=== PATIENT | female | born 1960 | race Caucasian/White ===

== ENCOUNTER 2016-10-24 13:06 | Observation (INO) | payer SELFPAY ==
--- NOTE | ~2016-10-24 | DS ---
Discharge Summary [place] [id number] [facility] [place]. [address] NAME: CHINMAY MENEZES : 64 STATUS : DIS Asya PAT#: [id number] AGE: 56 ADM/REG DATE : 10/24/16 MR#: [id number] REPORT SERV DATE: 10/26/16 DICTATED BY: BRENNON MARIN DATE: 10/25/16 REPORT STATUS : Draft TRANSCRIBED BY: JIHAN DATE: 10/25/16 ADMISSION DATE: 10/24/2016 DISCHARGE DATE: 10/25/2016 HISTORY OF PRESENT ILLNESS: For complete history, please refer to admission H and P by Dr. Jaya Mckeon. Briefly, Ms. Menezes is a 56-year-old female, who is admitted to the hospital with abdominal pain and acute sigmoid diverticulitis. She presented to the emergency room, seen and had a CT scan which revealed acute diverticulitis, was given prescriptions for antibiotics and narcotics, and was discharged; however, she started having some nausea and vomiting, came back to the emergency room, and was admitted. She was admitted to the Hospitalist Service for further evaluation and treatment. DISCHARGE DIAGNOSIS 1. Acute sigmoid diverticulitis. 2. Abdominal pain. 3. Anxiety. 4. History of hypertension. HOSPITAL COURSE: Ms. Menezes was admitted to a telemetry bed in the clinical decision unit. Again, her admitting diagnosis was acute diverticulitis. She was provided with IV fluids, p.r.n. IV morphine along with Levaquin 750 mg IV daily and Flagyl 500 mg IV q.8 hours. Her hospital course has been uneventful. I saw her on the morning of 10/25/2016. She was awake, alert, and oriented x3, in no acute distress. She had some minimal complaints of left lower quadrant abdominal pain, which was controlled with hydrocodone. Her vital signs were stable. Blood pressure 118/62 this morning. Sinus rhythm per telemetry. Heart rate in the 80s. She was running a low-grade temp this morning of 99.6. She was tolerating full liquids without any symptoms. Feeling much better as the day progressed, up ambulating in the hallways without difficulty. In the early evening of 10/25/2016, she was requesting to be discharged home. We did agree to this discharge as she is stable. LABORATORY STUDIES: Today, sodium 141, potassium 3.9, chloride 104, BUN 9, creatinine 0.67, GFR 115, glucose 97, calcium 8.5. WBCs 10.1, hemoglobin 12.5, hematocrit 36.2, platelets 188,000. CT of the abdomen and pelvis from 10/24/2016. Impression: Acute sigmoid diverticulitis, does not appear complicated at this time without a definite pericolonic abscess; however, this is done without intraluminal or IV contrast. This is in the same area of inflammation seen in 2010. Difficult to exclude possibility there may be an underlying tumor. PLAN: Discharge home this evening with prescriptions for Flagyl 500 mg p.o. q.8 hours for nine days as well as Levaquin 750 mg p.o. daily for nine days. She is also provided with a prescription for hydrocodone 5/325 mg one p.o. q.4 to 6 hours p.r.n. pain, #20, no refills. Diet recommended is soft. Activity as tolerated. Ms. Menezes will follow up with her primary care provider, Jasmyn Eduardo, nurse practitioner in 7 to [address] Melvin Orourke, her grease press helper in two weeks. The patient is in agreement with this plan of care and is discharged home in stable condition. Discharge Summary [address] [address] NAME: CHINMAY MENEZES : 64 STATUS : DIS Asya PAT#: [id number] AGE: 56 ADM/REG DATE : 10/24/16 MR#: [id number] REPORT SERV DATE: 10/26/16 DICTATED BY: BRENNON MARIN DATE: 10/25/16 REPORT STATUS : Draft TRANSCRIBED BY: JIHAN DATE: 10/25/16 JOHANA/JIHAN ELMER Chahal / [id number] CC: MD Melvin Alicea M.D.
--- NOTE | ~2016-10-24 | HP ---
History And Physical [place] [id number] [facility] [place]. [address] NAME: CHINMAY MENEZES : 64 STATUS : ADM Asya PAT#: [id number] AGE: 56 ADM/REG DATE : 10/24/16 MR#: [id number] REPORT SERV DATE: 10/25/16 DICTATED BY: MARISA MONCADA DATE: 10/24/16 REPORT STATUS : Draft TRANSCRIBED BY: MODL DATE: 10/24/16 DATE OF ADMISSION: 10/24/2016 PRIMARY CARE PHYSICIAN: None. HISTORY OF PRESENT ILLNESS: This is a 56-year-old female, who comes in for abdominal pain. The patient is relatively healthy individual and denies any significant past medical problems. She started having some lower abdominal pain, but she tried to tough it out. She has some on and off low-grade temperature about the size of 100 with some chills and sweats at times. She has some nausea, but no vomiting. She denies any urinary or bowel changes. However, last night, it became so severe that she decided to come to the emergency room today. A CAT scan was done and she was found to have an acute sigmoid diverticulitis, which does not appear to be complicated without a definite abscess. The patient was then given fluids and oral antibiotics and was sent home; however, she started having some nausea, retching, but really did not vomit. She felt little bit dizzy, went back to the emergency room and we are called now to admit the patient. The patient denies any shortness of breath. No cough. No near syncopal or syncopal episode. REVIEW OF SYSTEMS: The rest of the 14-point review of systems is negative, except as above. PAST MEDICAL HISTORY: Includes an L5-S1 microdiskectomy for a herniated disk, appendectomy, anxiety. ALLERGIES: SHE HAS NO KNOWN DRUG ALLERGIES. MEDICATIONS: Include Wellbutrin and Tylenol and Aleve as needed. FAMILY HISTORY: Mom with lung cancer. Dad with COPD. Diabetes runs in the father's side. SOCIAL HISTORY: The patient is an ex-smoker, quit several years ago. No alcohol or recreational drug use. PHYSICAL EXAMINATION: GENERAL: The patient is alert and oriented x3, not in cardiopulmonary distress. VITAL SIGNS: Include a temperature of 100.2, pulse rate of 81, respiration of 18, blood pressure of 165/87, pulse rate of 81, respiration of 18, and saturating 94% on room air. NECK: She has supple neck. No JVD or carotid bruits. No lymphadenopathy. [place] conjunctivae. Anicteric sclerae. No pharyngeal erythema. LUNGS: Clear lungs. No rales. No wheezes. CARDIOVASCULAR: Regular rate and rhythm. No murmurs appreciated. Positive bowel sounds. Soft. There is tenderness in the left lower quadrant area, but no rebound, guarding, or masses. EXTREMITIES: Full pulses. No edema. NEURO: Nonlocalizing. History And Physical [address] [address] NAME: CHINMAY MEENZES : 64 STATUS : ADM Asya PAT#: [id number] AGE: 56 ADM/REG DATE : 10/24/16 MR#: [id number] REPORT SERV DATE: 10/25/16 DICTATED BY: MARISA MONCADA. DATE: 10/24/16 REPORT STATUS : Draft TRANSCRIBED BY: JIHAN DATE: 10/24/16 IMAGING: CAT scan shows the above findings. LABORATORY DATA: Reveals a basic metabolic panel, LFTs within normal limits. White count of 10.7. The rest of the CBC is within normal limits. Urinalysis is unremarkable. ASSESSMENT: 1. Acute diverticulitis. 2. Hypertension. 3. Anxiety disorder. PLAN: The patient will be admitted for observation. We will start IV antibiotics and fluids. We will monitor the labs and replace if needed. We will give hydralazine p.r.n. Her high blood pressure might be secondary to her pain, but we will monitor this and if it remains high, she might need some blood pressure medications on discharge. Hopefully that she gets better and if everything goes well, she might be able to be discharged tomorrow, but it depends on how she improves. This has been explained to her in front of her friend and they agreed and understood the plan. SHANTANU/JIHAN Marisa Moncada M.D. / [id number] CC: Nik Mccarthy MD
[2016-10-24 11:38] LABS: BASOPHILS 0.2 %; BASOPHILS ABSOLUTE 0.02 10/3/uL (0.0-0.16); EOSINOPHILS 0.1 %; EOSINOPHILS ABSOLUTE 0.01 10/3/uL (0.0-0.53); HEMATOCRIT 43.4 % (36.0-48.0); HEMOGLOBIN 15.2 g/dL (12.0-16.0); IMMATURE GRANULOCYTES 0.2 %; IMMATURE GRANULOCYTES ABSOLUTE 0.02 10/3/uL (0.0-0.11); LYMPHOCYTES 12.6 %; LYMPHOCYTES ABSOLUTE 1.35 10/3/uL (0.67-4.30); MEAN CORPUSCULAR HEMOGLOB 31.2 pg (26.0-34.0); MEAN CORPUSCULAR VOLUME 89.1 fL (80-100); MEAN PLATELET VOLUME 8.5 fL (9.2-13.0); MONOCYTES 5.3 %; MONOCYTES ABSOLUTE 0.57 10/3/uL (0.21-1.20); NEUTROPHILS 81.6 %; NEUTROPHILS ABSOLUTE 8.71 10/3/uL (2.02-8.40); PLATELET COUNT 238 10/3/uL (150-400); RBC DISTRIBUTION WIDTH 12.8 % (12.0-16.0); RED CELL COUNT 4.87 10/6/uL (4.0-5.6)
[2016-10-24 11:39] LABS: ER CBC TAT 0 Hrs 08 Mins; MANUAL DIFF NO %; WHITE BLOOD CELLS 10.7 10/3/uL (4.5-10.5)
[2016-10-24 11:44] LABS: ASCORBIC ACID (UR NOT ORDER) NEG (NEG); BILIRUBIN, URINE NEGATIVE (NEG); ER URINALYSIS TAT 0 Hrs 13 Mins; KETONE, URINE NEGATIVE (NEG); LEUKOCYTE ESTERASE(NOT OR SMALL (NEG); NITRITE (URINE) NEG (NEG); WBC (NOT ORDERED) (RFLEX) 8 (0-5)
[2016-10-24 11:57] LABS: ALBUMIN 3.9 G/DL (3.5-5.0); CHLORIDE, SERUM 104 MMOL/L (96-112); CO2 (CARBON DIOXIDE) 28 MMOL/L (24-34); CREATININE 0.68 MG/DL (0.55-1.02); GFR AFRICAN AMERICAN 115 ML/MIN (>=60); GFR NON AFRICAN AMERICAN 99 ML/MIN (>=60); GLUCOSE, SERUM 97 MG/DL (60-99); POTASSIUM, SERUM 3.8 MMOL/L (3.5-5.3); SGOT(AST) 14 U/L (5-40); SGPT(ALT) 30 U/L (5-65); SODIUM, SERUM 139 MMOL/L (135-148); TOTAL BILIRUBIN 0.4 MG/DL (0-1.2); TOTAL PROTEIN 8.1 G/DL (6.0-8.5)
[2016-10-24 12:01] LABS: A/G RATIO 0.9 (0.7-1.9); ALKALINE PHOSPHATASE 84 U/L (45-117); BUN (BLOOD UREA NITROGEN) 10 MG/DL (6-23); CALCIUM, SERUM 10.9 MG/DL (8.5-10.4); GLOBULIN 4.2 G/DL (2.5-4.1)
[2016-10-24] MEDS ORDERED: WELLXL150 PO (18:22)
[2016-10-24] MEDS ORDERED: T PO (18:22)
[2016-10-24] MEDS ORDERED: ALEVE220 MG PO (18:23)
[2016-10-25 02:44] LABS: BASOPHILS 0.2 %; BASOPHILS ABSOLUTE 0.02 10/3/uL (0.0-0.16); EOSINOPHILS 0.1 %; EOSINOPHILS ABSOLUTE 0.01 10/3/uL (0.0-0.53); HEMATOCRIT 36.2 % (36.0-48.0); HEMOGLOBIN 12.5 g/dL (12.0-16.0); IMMATURE GRANULOCYTES 0.2 %; IMMATURE GRANULOCYTES ABSOLUTE 0.02 10/3/uL (0.0-0.11); LYMPHOCYTES 13.9 %; LYMPHOCYTES ABSOLUTE 1.41 10/3/uL (0.67-4.30); MANUAL DIFF NO %; MEAN CORPUS HGB CONC 34.5 g/dL (32.0-36.0); MEAN CORPUSCULAR HEMOGLOB 30.9 pg (26.0-34.0); MEAN CORPUSCULAR VOLUME 89.6 fL (80-100); MEAN PLATELET VOLUME 8.5 fL (9.2-13.0); MONOCYTES 9.2 %; MONOCYTES ABSOLUTE 0.93 10/3/uL (0.21-1.20); NEUTROPHILS 76.4 %; NEUTROPHILS ABSOLUTE 7.73 10/3/uL (2.02-8.40); PLATELET COUNT 188 10/3/uL (150-400); RBC DISTRIBUTION WIDTH 12.8 % (12.0-16.0); RED CELL COUNT 4.04 10/6/uL (4.0-5.6); WHITE BLOOD CELLS 10.1 10/3/uL (4.5-10.5)
[2016-10-25 02:56] LABS: BUN (BLOOD UREA NITROGEN) 9 MG/DL (6-23); CHLORIDE, SERUM 104 MMOL/L (96-112); CO2 (CARBON DIOXIDE) 28 MMOL/L (24-34); CREATININE 0.67 MG/DL (0.55-1.02); GFR AFRICAN AMERICAN 115 ML/MIN (>=60); GFR NON AFRICAN AMERICAN 100 ML/MIN (>=60); GLUCOSE, SERUM 97 MG/DL (60-99); POTASSIUM, SERUM 3.9 MMOL/L (3.5-5.3); SODIUM, SERUM 141 MMOL/L (135-148)
[2016-10-25 03:00] LABS: CALCIUM, SERUM 8.5 MG/DL (8.5-10.4)
[2016-10-25] MEDS ORDERED: NORCO1 TA1 PO (18:04)
[2016-10-25] MEDS ORDERED: FLAGYL ER750 MG PO (18:12)
[2016-10-25] MEDS ORDERED: LEVAQUIN750 MG PO (18:32)
[2016-10-25] MEDS ORDERED: MIRALAX POWDER1 PKT PO (18:35)
[2017-04-19] MEDS ORDERED: WELLXL150 PO (07:39)
[2017-04-19] MEDS ORDERED: CIP5 PO (07:39)
[2017-04-19] MEDS ORDERED: FLAG500TAB PO (07:40)
[2017-04-23] MEDS ORDERED: ZOFRAN4 PO (11:47)
[2017-04-23] MEDS ORDERED: AUG875 PO (11:47)
== END 2016-10-25 19:03 | disposition home or self-care (01) ==
LOC: ER 13:06 → CDU1 19:41 → CDU2 21:10
PROVIDERS: Emergency Medicine; Internal Medicine
DX: K57.92 Diverticulitis of intestine, part unspecified, without perforation or abscess without bleeding (principal); F41.9 Anxiety disorder, unspecified; I10 Essential (primary) hypertension; Z90.49 Acquired absence of other specified parts of digestive tract; Z87.891 Personal history of nicotine dependence
CPT/HCPCS: 74176; 80048; 80053; 81001; 83605; 83690; 84703; 85025; 87040; 87086; 96365; 96375; 96376; 99285; A9270-GY; G0378; J1170; J1956; J2405; J2550